=== PATIENT | male | born 1955 | race Caucasian/White ===

== ENCOUNTER 2023-07-06 11:57 | Day surgery (SDC) | payer OTHER ==
[~2023-07-06] VITALS: Ht 182.9 cm; Wt 62.0 kg
[~2023-07-06 11:57] MED LIST: Dexamethasone Sod Phos 10 MG/ML 1ML VIAL ONE; FentaNYL Citrate 50 MCG/ML 2 ML Injection ONE; HYDACE10B PO; METCAR500 PO; METH10 PO; Midazolam HCl 1MG / ML 2ML Vial ONE; Ondansetron HCl 2 MG / ML 2ML Vial ONE; Ropivacaine 0.5% HCl/Pf 5 MG/ML 20ML VIAL ONE; propofoL 0 ML IV ONE
[2023-07-06] MEDS ORDERED: OXYC5 (13:09)
[2023-07-06] MEDS ORDERED: CYCL10 (13:09)
[2023-07-06] MEDS ORDERED: HYDCHL25 (13:10)
[2023-07-06] MEDS ORDERED: ZESTORETIC 20-1 EACH (13:11)
[2023-07-06] MEDS ORDERED: IBUP800 (13:11)
[2023-07-06] MEDS ORDERED: DOCU100 (13:12)
[2023-07-06] MEDS ORDERED: SILD50TA (13:12)
[2023-07-06] MEDS ORDERED: TRAZ100 (13:12)
[2023-07-06] MEDS ORDERED: ZOCOR20 MG (13:12)
[2023-07-06] MEDS ORDERED: Lactated Ringer's 1,000 ML IV ONE ×2 (13:23→13:33)
[2023-07-06] MEDS ORDERED: FentaNYL Citrate 50 MCG/ML 2 ML Injection ONE (13:28)
[2023-07-06] MEDS ORDERED: propofoL 20 ML IV ONE (13:28)
[2023-07-06] MEDS ORDERED: Midazolam HCl 1MG / ML 2ML Vial ONE (13:28)
[2023-07-06] MEDS ORDERED: Ipratropium/Albuterol SulF 2.5-0.5MG/3 ML Amp ONE (13:33)
[2023-07-06] MEDS ORDERED: Ketorolac Tromethamine 30mg Vial ONE (14:43)
[2023-07-06 15:44] VITALS: BP 106/61
== END 2023-07-06 15:59 | disposition home or self-care (01) ==
LOC: ORSCSDS 11:57
PROVIDERS: Orthopaedic Surgery
PROC: 0R9M0ZX Drainage of Left Elbow Joint, Open Approach, Diagnostic (ICD-10-PCS; principal; 2023-07-06 13:30)
DX: M71.122 Other infective bursitis, left elbow (principal); I10 Essential (primary) hypertension; J45.909 Unspecified asthma, uncomplicated; Z79.899 Other long term (current) drug therapy; Z87.891 Personal history of nicotine dependence
CPT/HCPCS: 87070; 87075; 87147; 87205; J1100; J1885; J2250; J2405; J2704; J2795; J3010; J7120

== ENCOUNTER 2023-10-12 01:38 | Day surgery (SDC) | payer OTHER ==
[~2023-10-12 01:38] MED LIST changes: +CYCL10; +DOCU100; -Dexamethasone Sod Phos 10 MG/ML 1ML VIAL ONE; -FentaNYL Citrate 50 MCG/ML 2 ML Injection ONE; +HYDCHL25; +IBUP800; -Midazolam HCl 1MG / ML 2ML Vial ONE; +OXYC5; -Ondansetron HCl 2 MG / ML 2ML Vial ONE; -Ropivacaine 0.5% HCl/Pf 5 MG/ML 20ML VIAL ONE; +SILD50TA; +TRAZ100; +ZESTORETIC 20-1 EACH; +ZOCOR20 MG; -propofoL 0 ML IV ONE
== END 2023-10-12 22:37 | disposition home or self-care (01) ==
LOC: WOUND 01:38
DX: T81.31XD Disruption of external operation (surgical) wound, not elsewhere classified, subsequent encounter (principal); I10 Essential (primary) hypertension; F17.210 Nicotine dependence, cigarettes, uncomplicated; M47.9 Spondylosis, unspecified; M71.122 Other infective bursitis, left elbow; Y83.8 Other surgical procedures as the cause of abnormal reaction of the patient, or of later complication, without mention of misadventure at the time of the procedure
CPT/HCPCS: 99406; G0463

== ENCOUNTER 2023-10-18 02:25 | Day surgery (SDC) | payer OTHER | END 2023-10-19 22:46 | disposition home or self-care (01) | LOC: WOUND 02:25 | DX: T81.31XD Disruption of external operation (surgical) wound, not elsewhere classified, subsequent encounter (principal); I10 Essential (primary) hypertension; M71.122 Other infective bursitis, left elbow; Y83.8 Other surgical procedures as the cause of abnormal reaction of the patient, or of later complication, without mention of misadventure at the time of the procedure | CPT/HCPCS: G0463 ==

== ENCOUNTER 2023-10-25 03:05 | Day surgery (SDC) | payer OTHER | END 2023-10-25 22:53 | disposition home or self-care (01) | LOC: WOUND 03:05 | DX: T81.31XA Disruption of external operation (surgical) wound, not elsewhere classified, initial encounter (principal); M71.122 Other infective bursitis, left elbow; I10 Essential (primary) hypertension | CPT/HCPCS: G0463 ==

== ENCOUNTER 2023-11-02 02:54 | Day surgery (SDC) | payer OTHER | END 2023-11-02 22:55 | disposition home or self-care (01) | LOC: WOUND 02:54 | DX: T81.31XD Disruption of external operation (surgical) wound, not elsewhere classified, subsequent encounter (principal); I10 Essential (primary) hypertension; M71.122 Other infective bursitis, left elbow; Y83.8 Other surgical procedures as the cause of abnormal reaction of the patient, or of later complication, without mention of misadventure at the time of the procedure | CPT/HCPCS: A6213; G0463 ==

== ENCOUNTER 2023-11-30 01:27 | Day surgery (SDC) | payer OTHER | END 2023-11-30 23:10 | disposition home or self-care (01) | LOC: WOUND 01:27 | DX: T81.31XD Disruption of external operation (surgical) wound, not elsewhere classified, subsequent encounter (principal); M71.122 Other infective bursitis, left elbow; I10 Essential (primary) hypertension | CPT/HCPCS: A6213; G0463 ==

== ENCOUNTER 2024-01-09 04:39 | Day surgery (SDC) | payer OTHER ==
[2024-01-09] MEDS ORDERED: Silver Nitr/Potassium Nitrate 1 EA APPL ONE (08:05)
== END 2024-01-09 22:52 | disposition home or self-care (01) ==
LOC: WOUND 04:39
DX: T81.31XA Disruption of external operation (surgical) wound, not elsewhere classified, initial encounter (principal); S51.002D Unspecified open wound of left elbow, subsequent encounter; M71.122 Other infective bursitis, left elbow; I10 Essential (primary) hypertension; Y83.8 Other surgical procedures as the cause of abnormal reaction of the patient, or of later complication, without mention of misadventure at the time of the procedure; X58.XXXD Exposure to other specified factors, subsequent encounter
CPT/HCPCS: A6213; A9270

== ENCOUNTER 2024-01-16 01:58 | Day surgery (SDC) | payer OTHER ==
[2024-01-16] MEDS ORDERED: Silver Nitr/Potassium Nitrate 1 EA APPL ONE (08:05)
== END 2024-01-16 23:31 | disposition home or self-care (01) ==
LOC: WOUND 01:58
DX: S51.002A Unspecified open wound of left elbow, initial encounter (principal); T81.31XA Disruption of external operation (surgical) wound, not elsewhere classified, initial encounter; M71.122 Other infective bursitis, left elbow; I10 Essential (primary) hypertension; X58.XXXA Exposure to other specified factors, initial encounter
CPT/HCPCS: A6213; A9270

== ENCOUNTER 2024-01-23 01:10 | Day surgery (SDC) | payer OTHER ==
[2024-01-23] MEDS ORDERED: Silver Nitr/Potassium Nitrate 1 EA APPL ONE (08:56)
== END 2024-01-23 23:10 | disposition home or self-care (01) ==
LOC: WOUND 01:10
DX: T81.31XD Disruption of external operation (surgical) wound, not elsewhere classified, subsequent encounter (principal); I10 Essential (primary) hypertension
CPT/HCPCS: A6213; A9270

== ENCOUNTER 2024-01-30 03:26 | Day surgery (SDC) | payer OTHER ==
[2024-01-30] MEDS ORDERED: Silver Nitr/Potassium Nitrate 1 EA APPL ONE (09:43)
== END 2024-01-30 23:36 | disposition home or self-care (01) ==
LOC: WOUND 03:26
DX: T81.31XA Disruption of external operation (surgical) wound, not elsewhere classified, initial encounter (principal); S51.002A Unspecified open wound of left elbow, initial encounter; M71.122 Other infective bursitis, left elbow; I10 Essential (primary) hypertension
CPT/HCPCS: A6213; A9270

== ENCOUNTER 2024-02-05 01:25 | Day surgery (SDC) | payer OTHER ==
[2024-02-05] MEDS ORDERED: Silver Nitr/Potassium Nitrate 1 EA APPL ONE (08:08)
== END 2024-02-05 23:00 | disposition home or self-care (01) ==
LOC: WOUND 01:25
DX: T81.31XD Disruption of external operation (surgical) wound, not elsewhere classified, subsequent encounter (principal); S51.002D Unspecified open wound of left elbow, subsequent encounter; M71.122 Other infective bursitis, left elbow; I10 Essential (primary) hypertension; Y83.8 Other surgical procedures as the cause of abnormal reaction of the patient, or of later complication, without mention of misadventure at the time of the procedure; X58.XXXD Exposure to other specified factors, subsequent encounter
CPT/HCPCS: A6213; A9270

== ENCOUNTER 2024-02-27 00:56 | Day surgery (SDC) | payer OTHER ==
[2024-02-27] MEDS ORDERED: Silver Nitr/Potassium Nitrate 1 EA APPL ONE (08:52)
== END 2024-02-27 22:53 | disposition home or self-care (01) ==
LOC: WOUND 00:56
DX: T81.31XA Disruption of external operation (surgical) wound, not elsewhere classified, initial encounter (principal); S51.002A Unspecified open wound of left elbow, initial encounter; M71.122 Other infective bursitis, left elbow; I10 Essential (primary) hypertension; X58.XXXA Exposure to other specified factors, initial encounter
CPT/HCPCS: A6213; A9270

== ENCOUNTER 2024-03-05 02:29 | Day surgery (SDC) | payer OTHER ==
[2024-03-05] MEDS ORDERED: Silver Nitr/Potassium Nitrate 1 EA APPL ONE (08:49)
== END 2024-03-05 23:00 | disposition home or self-care (01) ==
LOC: WOUND 02:29
DX: T81.31XD Disruption of external operation (surgical) wound, not elsewhere classified, subsequent encounter (principal); S51.002D Unspecified open wound of left elbow, subsequent encounter; I10 Essential (primary) hypertension; M71.122 Other infective bursitis, left elbow; Y83.8 Other surgical procedures as the cause of abnormal reaction of the patient, or of later complication, without mention of misadventure at the time of the procedure
CPT/HCPCS: A6213; A9270

== ENCOUNTER 2024-03-12 03:46 | Day surgery (SDC) | payer OTHER ==
[2024-03-12] MEDS ORDERED: Lidocaine HCl 4% Cream 5 GM ONE (08:34)
[2024-03-12] MEDS ORDERED: Silver Nitr/Potassium Nitrate 1 EA APPL ONE (08:35)
== END 2024-03-12 23:00 | disposition home or self-care (01) ==
LOC: WOUND 03:46
DX: T81.31XA Disruption of external operation (surgical) wound, not elsewhere classified, initial encounter (principal); S51.002A Unspecified open wound of left elbow, initial encounter; M71.122 Other infective bursitis, left elbow; I10 Essential (primary) hypertension; X58.XXXA Exposure to other specified factors, initial encounter
CPT/HCPCS: A6213; A9270

== ENCOUNTER 2024-03-19 05:19 | Day surgery (SDC) | payer OTHER ==
[2024-03-19] MEDS ORDERED: Silver Nitr/Potassium Nitrate 1 EA APPL ONE (08:28)
== END 2024-03-19 23:00 | disposition home or self-care (01) ==
LOC: WOUND 05:19
DX: T81.31XD Disruption of external operation (surgical) wound, not elsewhere classified, subsequent encounter (principal); I10 Essential (primary) hypertension
CPT/HCPCS: A6213; A9270

== ENCOUNTER 2024-03-31 03:12 | Day surgery (SDC) | payer OTHER ==
[2024-03-31] MEDS ORDERED: Lidocaine HCl 4% Cream 5 GM ONE (11:18)
[2024-03-31] MEDS ORDERED: Silver Nitr/Potassium Nitrate 1 EA APPL ONE (11:26)
== END 2024-03-31 23:00 | disposition home or self-care (01) ==
LOC: WOUND 03:12
DX: S51.002A Unspecified open wound of left elbow, initial encounter (principal); T81.31XA Disruption of external operation (surgical) wound, not elsewhere classified, initial encounter; M71.122 Other infective bursitis, left elbow; I10 Essential (primary) hypertension; X58.XXXA Exposure to other specified factors, initial encounter
CPT/HCPCS: A6213; A9270

== ENCOUNTER 2024-04-09 00:51 | Day surgery (SDC) | payer OTHER ==
[2024-04-09] MEDS ORDERED: Silver Nitr/Potassium Nitrate 1 EA APPL ONE (08:49)
== END 2024-04-09 23:00 | disposition home or self-care (01) ==
LOC: WOUND 00:51
DX: T81.31XA Disruption of external operation (surgical) wound, not elsewhere classified, initial encounter (principal); I10 Essential (primary) hypertension
CPT/HCPCS: A6213; A9270

== ENCOUNTER 2024-04-16 02:56 | Day surgery (SDC) | payer OTHER | END 2024-04-16 22:51 | disposition home or self-care (01) | LOC: WOUND 02:56 | DX: T81.31XD Disruption of external operation (surgical) wound, not elsewhere classified, subsequent encounter (principal); I10 Essential (primary) hypertension | CPT/HCPCS: A6213; G0463 ==

== ENCOUNTER 2024-04-29 | Day surgery (SDC) | payer OTHER | END 2024-04-29 23:00 | disposition home or self-care (01) | LOC: WOUND | DX: T81.31XD Disruption of external operation (surgical) wound, not elsewhere classified, subsequent encounter (principal); I10 Essential (primary) hypertension | CPT/HCPCS: G0463 ==

== ENCOUNTER 2024-05-07 05:57 | Day surgery (SDC) | payer OTHER | END 2024-05-07 23:00 | disposition home or self-care (01) | LOC: WOUND 05:57 | DX: T81.31XD Disruption of external operation (surgical) wound, not elsewhere classified, subsequent encounter (principal); I10 Essential (primary) hypertension; S51.002D Unspecified open wound of left elbow, subsequent encounter; M71.122 Other infective bursitis, left elbow; Y83.8 Other surgical procedures as the cause of abnormal reaction of the patient, or of later complication, without mention of misadventure at the time of the procedure; X58.XXXD Exposure to other specified factors, subsequent encounter | CPT/HCPCS: G0463 ==